=== PATIENT | male | born 1980 | race American Indian/Alaskan Native ===

== ENCOUNTER 2018-08-11 11:16 | Emergency (ER) | payer MEDICAID ==
[2018-08-11 11:29] VITALS: RESP 18
--- NOTE | 2018-08-11 12:11 | C.PDOC ---
History Of Present Illness 38 y/o male presents to ED complaining of a headache s/p fall. States that while at work, when lifting a desk outdoors, he started feeling lightheaded and fell down to the ground. Reports that the desk fell and hit his left cheek. Patient admits to LOC and believes he felt lightheaded due to not eating breakfast this morning. Denies any diagnosed diabetes or any other medical issues. Rates headache a 6/10, nonradiating. Denies any weakness, chest pain, SOB, nausea, vomiting, or abdominal pain. - HPI Chief Complaint (Nursing): Trauma History Per: Patient History/Exam Limitations: no limitations Onset/Duration Of Symptoms: Hrs Past Medical History Reviewed: Historical Data, Nursing Documentation, Vital Signs Vital Signs: Last Vital Signs Temp 98.2 F 08/11/18 11:26 Pulse 96 H 08/11/18 11:26 Resp 18 08/11/18 11:26 BP 141/85 08/11/18 11:26 Pulse Ox 100 08/11/18 11:26 Primary Care Provider: Non [facility] Provider, Family History: States: No Known Family Hx - Social History Hx Alcohol Use: No Hx Substance Use: No - Immunization History Hx Tetanus Toxoid Vaccination: No Hx Influenza Vaccination: No Hx Pneumococcal Vaccination: No Review Of Systems Constitutional: Negative for: Fever, Chills Eyes: Negative for: Vision Change Cardiovascular: Positive for: Light Headedness. Negative for: Chest Pain Respiratory: Negative for: Shortness of Breath Gastrointestinal: Negative for: Nausea, Vomiting, Abdominal Pain Neurological: Positive for: Headache, Other (LOC) Physical Exam - Physical Exam Appears: Non-toxic, No Acute Distress Skin: Warm, Dry Head: Laceration (V-shaped laceration, 2cm on each side, to the left cheek near the left nare, bleeding controlled) Eye(s): bilateral: Normal Inspection, PERRL Ear(s): Bilateral: Normal Nose: Normal Oral Mucosa: Moist Tongue: Normal Appearing Lips: Normal Appearing Throat: No Erythema, No Exudate Neck: Normal ROM, Supple Cardiovascular: Rhythm Regular Respiratory: Normal Breath Sounds, No Wheezing Gastrointestinal/Abdominal: Soft, No Tenderness Extremity: No Tenderness, No Deformity Extremity: Bilateral: Atraumatic, Normal ROM Neurological/Psych: Oriented x3, Normal Speech, Normal Motor, Normal Sensation Gait: Steady ED Course And Treatment O2 Sat by Pulse Oximetry: 100 (RA) Pulse Ox Interpretation: Normal - CT Scan/US Maxillofacial CT Other Rad Studies (CT/US): Read By Radiologist, Radiology Report Reviewed CT/US Interpretation: FINDINGS: NASAL BONES: Unremarkable. ORBITS: No intraorbital hemorrhage. No orbital fracture. Globes are rounded and symmetric. PARANASAL SINUSES/ MASTOIDS: Dependent fluid in left maxillary antrum consistent with anterior maxillary fracture. MAXILLA: There is comminuted minimally displaced fracture of the anterior wall of the left maxillary sinus. This does not extend the orbital rim or orbital floor. No other fracture is appreciated. Please note that there is subcutaneous gas and hemorrhage in the soft tissues anterior to the left maxillary sinus, lateral to the nose. There is also a tiny bone fragment or radiopaque foreign body seen within the soft tissues just lateral to the base of the nose. This is seen on series 3, image 84. MANDIBLE/ TEMPOROMANDIBULAR JOINTS: Unremarkable. SKULL BASE: Unremarkable. TEMPORAL BONES: Middle ears and mastoid grossly unremarkable. OTHER FINDINGS: None. IMPRESSION: Comminuted minimally displaced fracture of the anterior wall of the left maxillary sinus. Dependent fluid/blood in maxillary antrum. Subcutaneous gas and hemorrhage anterior to the anterior wall of the left maxillary sinus. No other fracture identified. Head CT Other Rad Studies (CT/US): Read By Radiologist, Radiology Report Reviewed CT/US Interpretation: FINDINGS: HEMORRHAGE: No intracranial hemorrhage. BRAIN: No mass effect or edema. No atrophy or chronic microvascular ischemic changes. VENTRICLES: Unremarkable. No hydrocephalus. CALVARIUM: Unremarkable. PARANASAL SINUSES: Tiny amount of fluid in the left maxillary sinus common nonspecific. MASTOID AIR CELLS: Unremarkable as visualized. No inflammatory changes. OTHER FINDINGS: None. IMPRESSION: No intracranial hemorrhage. Laceration - Laceration Repair left cheek Wound Length (In cm): 2 Description Of Wound: Irregular Wound Cleansed With: Betadine, Sterile Saline Anesthesia: Lidocaine 1% Wound Examination: Irrigated With Saline, No FB With Wound Exploration Wound Closure: Suture (6 ) Suture Technique And Material Used: Interrupted, Prolene (4-0 ) Wound Complexity: Simple Medical Decision Making Medical Decision Making: Plan: --Head and Maxillofacial CT ordered and reviewed: Comminuted minimally displaced fracture of the anterior wall of the left maxillary sinus. Dependent fluid/blood in maxillary antrum. Subcutaneous gas and hemorrhage anterior to the anterior wall of the left maxillary sinus. No other fracture identified. --Augmentin and Tylenol PO given --Laceration Repaired- bacitracin applied --patient advised to follow up with [facility] in 1-2 days in light of maxillary fracture --patient verbalized understanding and is stable for discharge Disposition Counseled Patient/Family Regarding: Studies Performed, Diagnosis, Need For Followup, Rx Given - Disposition Referrals: Michelle Andrews DMD [Staff Provider] - Demond Velasco DMD [Doctor Dental Medicine] - Disposition: HOME/ ROUTINE Disposition Time: 13:53 Condition: STABLE Additional Instructions: Keep wound Clean and dry Apply bacitracin to site Continue Meds as prescribed Follow up with Oral maxillofacial specialist or dentist to further assess left maxillary sinus fracture (report given) Return in 7 days for suture removal Prescriptions: Acetaminophen [Tylenol] 650 mg PO Q8 #30 capsule Amoxicillin/Clavulanate [Augmentin 875 MG-125 MG] 1 tab PO BID #13 tab Instructions: Wound Care (DC), Laceration Repair With Stitches (DC), Minor Head Injury (DC) Forms: [employer] (Khmer), Work Excuse - Clinical Impression Clinical Impression: Head injury, Laceration - injury, Fracture of maxillary sinus - PA / MACHINIST OUTSIDE / Resident Statement MD/DO has reviewed & agrees with the documentation as recorded. - Scribe Statement The provider has reviewed the documentation as recorded by the Scribe Jeanna Neal All medical record entries made by the Scribe were at my direction and personally dictated by me. I have reviewed the chart and agree that the record accurately reflects my personal performance of the history, physical exam, medical decision making, and the department course for this patient. I have also personally directed, reviewed, and agree with the discharge instructions and disposition.
--- NOTE | 2018-08-11 12:40 | CT ---
Date of service: 08/11/2018 PROCEDURE: CT HEAD WITHOUT CONTRAST. HISTORY: s/p trauma COMPARISON: None available. TECHNIQUE: Axial computed tomography images were obtained through the head/brain without intravenous contrast. Radiation dose: Total exam DLP = 895.65 mGy-cm. This CT exam was performed using one or more of the following dose reduction techniques: Automated exposure control, adjustment of the mA and/or kV according to patient size, and/or use of iterative reconstruction technique. FINDINGS: HEMORRHAGE: No intracranial hemorrhage. BRAIN: No mass effect or edema. No atrophy or chronic microvascular ischemic changes. VENTRICLES: Unremarkable. No hydrocephalus. CALVARIUM: Unremarkable. PARANASAL SINUSES: Tiny amount of fluid in the left maxillary sinus common nonspecific. MASTOID AIR CELLS: Unremarkable as visualized. No inflammatory changes. OTHER FINDINGS: None. IMPRESSION: No intracranial hemorrhage.
--- NOTE | 2018-08-11 12:47 | CT ---
Date of service: 08/11/2018 PROCEDURE: CT MAXILLOFACIAL BONES WITHOUT CONTRAST HISTORY: s/p trauma COMPARISON: None available. TECHNIQUE: Contiguous axial CT images of the maxillofacial bones were obtained. Coronal and sagittal reformats were generated. Radiation dose: Total exam DLP = 812.08 mGy-cm. This CT exam was performed using one or more of the following dose reduction techniques: Automated exposure control, adjustment of the mA and/or kV according to patient size, and/or use of iterative reconstruction technique. FINDINGS: NASAL BONES: Unremarkable. ORBITS: No intraorbital hemorrhage. No orbital fracture. Globes are rounded and symmetric. PARANASAL SINUSES/ MASTOIDS: Dependent fluid in left maxillary antrum consistent with anterior maxillary fracture. MAXILLA: There is comminuted minimally displaced fracture of the anterior wall of the left maxillary sinus. This does not extend the orbital rim or orbital floor. No other fracture is appreciated. Please note that there is subcutaneous gas and hemorrhage in the soft tissues anterior to the left maxillary sinus, lateral to the nose. There is also a tiny bone fragment or radiopaque foreign body seen within the soft tissues just lateral to the base of the nose. This is seen on series 3, image 84. MANDIBLE/ TEMPOROMANDIBULAR JOINTS: Unremarkable. SKULL BASE: Unremarkable. TEMPORAL BONES: Middle ears and mastoid grossly unremarkable. OTHER FINDINGS: None. IMPRESSION: Comminuted minimally displaced fracture of the anterior wall of the left maxillary sinus. Dependent fluid/blood in maxillary antrum. Subcutaneous gas and hemorrhage anterior to the anterior wall of the left maxillary sinus. No other fracture identified.
[2018-08-11] MEDS ORDERED: Lidocaine 2% PF (10 ml) Amp EPI STA (13:06)
[2018-08-11] MEDS ORDERED: Bacitracin 500 Units/gm Oint Foilpak UD TOP ONE (13:07)
[2018-08-11] MEDS ORDERED: Bacitracin 500 Units/gm Oint Foilpak UD ONE (13:11)
[2018-08-11] MEDS ORDERED: Lidocaine Hydrochloride 5 ML INJ ONE (13:11)
[2018-08-11] MEDS ORDERED: Amoxicillin-Clav 875-125 mg Tab PO STA (13:53)
[2018-08-11] MEDS ORDERED: Amoxicillin-Clav 875-125 mg Tab PO ONE (13:59)
[2018-08-11 14:01] VITALS: BP 119/75; PULSE 75; TEMP 98.5
[2018-08-11 14:04] VITALS: O2SAT 100
== END 2018-08-11 14:19 | disposition home or self-care (01) ==
LOC: C.ER 11:16
DX: S02.40DA Maxillary fracture, left side, initial encounter for closed fracture (principal); S01.412A Laceration without foreign body of left cheek and temporomandibular area, initial encounter; W18.39XA Other fall on same level, initial encounter; Y92.69 Other specified industrial and construction area as the place of occurrence of the external cause; Y99.0 Civilian activity done for income or pay

== ENCOUNTER 2018-08-19 09:14 | Emergency (ER) | payer MEDICAID ==
[2018-08-19 09:23] VITALS: BP 128/80; PULSE 81; RESP 16; TEMP 98; O2SAT 99
--- NOTE | 2018-08-19 09:41 | C.PDOC ---
History Of Present Illness 38 y.o. male presents from home for evaluation of sutures that were placed 8 days ago. Pt admits he is not compliant with antibiotics because he "doesn't like medications" also admits he didn't follow up for maxillary fracture as outpatient because he was working. Offers no other medical complaints in the ED. Denies fever, chills, discharge, swelling, erythema, and any other medical complaints. Time Seen by Provider: 08/19/18 09:26 Chief Complaint (Nursing): Wound Check History Per: Patient History/Exam Limitations: no limitations Onset/Duration Of Symptoms: Days Ago (x8) Current Symptoms Are (Timing): Better Location Of Injury: Left: Mouth Recent travel outside of the [place]: No Past Medical History Reviewed: Historical Data, Nursing Documentation, Vital Signs Vital Signs: Last Vital Signs Temp 98 F 08/19/18 09:16 Pulse 81 08/19/18 09:16 Resp 16 08/19/18 09:16 BP 128/80 08/19/18 09:16 Pulse Ox 99 08/19/18 09:16 Primary Care Provider: Non [facility] Provider, Family History: States: Unknown Family Hx - Social History Hx Alcohol Use: No Hx Substance Use: No - Immunization History Hx Tetanus Toxoid Vaccination: No Hx Influenza Vaccination: No Hx Pneumococcal Vaccination: No Review Of Systems Except As Marked, All Systems Reviewed And Found Negative. Constitutional: Positive for: Other (maxillary suture removal. ). Negative for: Fever, Chills Skin: Negative for: Other ((-) discharge. (-) swelling. (-) erythema. ) Physical Exam - Physical Exam Appears: Non-toxic, No Acute Distress Skin: Warm, Dry, Other (wound to the LT side of face is dry, clean, intact. ) Head: Atraumatic, Normacephalic Eye(s): bilateral: Normal Inspection Oral Mucosa: Moist ED Course And Treatment O2 Sat by Pulse Oximetry: 99 (RA) Pulse Ox Interpretation: Normal Medical Decision Making Medical Decision Making: Progress/Update: Stressed the importance of antibiotics and pt follow-up. Pt stable for discharge home. Disposition - Disposition Referrals: [facility] [Outside] [facility] [Outside] Disposition: HOME/ ROUTINE Condition: STABLE Additional Instructions: follow up with specialist. return to er with worsneing. please take all meds as previously prescribed. Instructions: Stitches Removal Forms: [employer] (Danish) - Clinical Impression Clinical Impression: Visit for suture removal - Scribe Statement The provider has reviewed the documentation as recorded by the Scribe (Toya Gonzalez) Provider Attestation: All medical record entries made by the Scribe were at my direction and personally dictated by me. I have reviewed the chart and agree that the record accurately reflects my personal performance of the history, physical exam, medical decision making, and the department course for this patient. I have also personally directed, reviewed, and agree with the discharge instructions and disposition.
--- NOTE | 2018-08-19 09:41 | C.PDOC ---
History Of Present Illness 38 y.o. male presents from home for evaluation of sutures that were placed 8 days ago to the LT side of the face. Pt admits he is not compliant with antibiotics because he "doesn't like medications" also admits he didn't follow up as outpatient for maxillary fracture because he was working. Offers no other medical complaints in the ED. Denies fever, chills, drainage, swelling, and any other medical complaints. Time Seen by Provider: 08/19/18 09:26 Chief Complaint (Nursing): Wound Check History Per: Patient History/Exam Limitations: no limitations Onset/Duration Of Symptoms: Days Ago Current Symptoms Are (Timing): Better Location Of Injury: Left: Mouth (maxillary. ) Quality Of Symptoms: denies: Swollen, Draining Recent travel outside of the [place]: No Past Medical History Reviewed: Historical Data, Nursing Documentation, Vital Signs Vital Signs: Last Vital Signs Temp 98 F 08/19/18 09:16 Pulse 81 08/19/18 09:16 Resp 16 08/19/18 09:16 BP 128/80 08/19/18 09:16 Pulse Ox 99 08/19/18 09:16 Primary Care Provider: Non [facility] Provider, Family History: States: Unknown Family Hx - Social History Hx Alcohol Use: No Hx Substance Use: No - Immunization History Hx Tetanus Toxoid Vaccination: No Hx Influenza Vaccination: No Hx Pneumococcal Vaccination: No Review Of Systems Except As Marked, All Systems Reviewed And Found Negative. Constitutional: Negative for: Fever, Chills Skin: Positive for: Other (6 sutures to the LT side of face: (-) drainage. (-) swelling. ) Physical Exam - Physical Exam Appears: Non-toxic, No Acute Distress Skin: Warm, Dry, Other (wound to the LT side of face: 6 sutures, wound is clean dry intact. ) ED Course And Treatment O2 Sat by Pulse Oximetry: 99 (RA) Pulse Ox Interpretation: Normal Medical Decision Making Medical Decision Making: Progress/Update: Removed x6 sutures. Stressed the importance of antibiotics and pt follow-up. Pt stable for discharge home. Disposition - Disposition Referrals: [facility] [Outside] [facility] [Outside] Disposition: HOME/ ROUTINE Disposition Time: 09:34 Condition: STABLE Additional Instructions: follow up with specialist. return to er with worsneing. please take all meds as previously prescribed. Instructions: Stitches Removal Forms: [employer] (Iraqi) - Clinical Impression Clinical Impression: Visit for suture removal - Scribe Statement The provider has reviewed the documentation as recorded by the Scribe (Toya Gonzalez) Provider Attestation: All medical record entries made by the Scribe were at my direction and personally dictated by me. I have reviewed the chart and agree that the record accurately reflects my personal performance of the history, physical exam, medical decision making, and the department course for this patient. I have also personally directed, reviewed, and agree with the discharge instructions and disposition.
== END 2018-08-19 09:57 | disposition home or self-care (01) ==
LOC: C.ER 09:14
DX: Z48.02 Encounter for removal of sutures (principal)